=== PATIENT | female | born 1935 | race Caucasian/White ===

== ENCOUNTER 2025-06-23 10:32 | Emergency (ER) | payer MEDICARE, BC ==
[~2025-06-23] VITALS: Ht 172.7 cm; Wt 57.6 kg
[2025-06-23 10:46] VITALS: BP 131/71; TEMP 98.3; O2SAT 99
[2025-06-23] MEDS ORDERED: LIDOCAINE 2% 20 ML MDV ONE (10:54)
[2025-06-23] MEDS ORDERED: TDAP [DIPH/PERTUSSIS/TET] 0.5 ML VIAL IM ONE (11:08)
[2025-06-23] MEDS: TDAP [DIPH/PERTUSSIS/TET] 0.5 ML VIAL IM ONE (11:33)
== END 2025-06-23 11:50 | disposition home or self-care (01) ==
LOC: ER 10:36
DX: S61.412A Laceration without foreign body of left hand, initial encounter (principal); W55.03XA Scratched by cat, initial encounter; Y93.89 Activity, other specified; Y92.89 Other specified places as the place of occurrence of the external cause; Y99.8 Other external cause status
CPT/HCPCS: 12002; 90471; 90715; 99283; A6403; J3490

== ENCOUNTER 2025-06-26 12:31 | Emergency (ER) | payer MEDICARE, BC ==
[~2025-06-26] VITALS: Ht 167.6 cm; Wt 52.2 kg
[2025-06-26 12:38] VITALS: BP 104/67; TEMP 98.1
[2025-06-26] MEDS ORDERED: BACITRACIN ZINC OINT PACKET 1 EA PACKET TP ONE (13:19)
[2025-06-26] MEDS ORDERED: ACETAMINOPHEN ES 500 MG TABLET ONE (13:19)
[2025-06-26] MEDS: ACETAMINOPHEN ES 500 MG TABLET PO ONE (13:23)
[2025-06-26] MEDS: BACITRACIN ZINC OINT PACKET 1 EA PACKET TP ONE (13:23)
[2025-06-26 13:24] VITALS: O2SAT 98
== END 2025-06-26 13:35 | disposition home or self-care (01) ==
LOC: ER 12:34
DX: S61.412D Laceration without foreign body of left hand, subsequent encounter (principal); M79.642 Pain in left hand; Z48.00 Encounter for change or removal of nonsurgical wound dressing; Z60.2 Problems related to living alone; W55.01XD Bitten by cat, subsequent encounter